=== PATIENT | female | born 1945 | race Caucasian/White ===

== ENCOUNTER 2018-07-31 21:26 | Emergency (ER) | payer OTHER ==
[~2018-07-31] VITALS: Ht 162.5 cm; Wt 73.5 kg
[~2018-07-31 21:26] MED LIST: FISH OIL; HYDROCODONE BIT1 T11 PO; IBU-8800 MG PO; LAMISIL250 MG PO; MULTIPLE VITAMI1 CAP PO; MULTIVITAMIN FO1 CAP PO; OMEGA 31000 MG PO; PRILOSEC20 MG PO; VITAMIN B1225 MCG PO; VITAMIN C100 MG PO
[2018-07-31 21:30] VITALS: BP 177/77
[2018-07-31] MEDS ORDERED: VIBRAMYCIN100 MG PO (23:14)
== END 2018-07-31 23:35 | disposition home or self-care (01) ==
LOC: ED 21:26
DX: R05 Cough (principal); R09.89 Other specified symptoms and signs involving the circulatory and respiratory systems; R68.83 Chills (without fever); Z79.899 Other long term (current) drug therapy; Z90.710 Acquired absence of both cervix and uterus

== ENCOUNTER 2018-08-01 19:28 | Inpatient (IN) | payer OTHER ==
[~2018-08-01] VITALS: Ht 162.5 cm; Wt 74.0 kg
--- NOTE | ~2018-08-01 | EKG ---
[place], [place] ELECTROCARDIOGRAM REPORT NAME: CB GARZA UNIT #: [id number] ROOM: 415 DOCTOR: EPIPHANY DRAFT REPORT BIRTHDATE: [birth year] [facility] Test Date: 2018-08-01 Test Time: 20:17:11 Pat Name: CB GARZA Department: ER Room: 415 Gender: F Recreation Superintendent: EKG.MA : 1945 Requested By: TREY XIONG Order Number: [id number] Reading MD: Harmony Stoner MD Measurements Intervals [place] Rate: 80 P: 42 [place]: 164 QRS: 48 QRSD: 84 T: 29 QT: 352 QTc: 406 Interpretive Statements Sinus rhythm Low voltage, precordial leads Electronically Signed On 08-02-2018 17:38:49 PDT by Harmony Stoner MD CM:EKGRPT:ELECTROCARDIOGRAM REPORT [id number] TREY XIONG MD EPIPHANY DRAFT REPORT TREY XIONG MD
[2018-08-01 19:28] VITALS: BP 180/72
[~2018-08-01 19:28] MED LIST changes: +VIBRAMYCIN100 MG PO
[2018-08-01 20:04] LABS: BASO % 0.5 % (0.0-1.0); HEMATOCRIT 42.9 % (37.0-47.0); HEMOGLOBIN 14.4 g/dl (12.0-16.0); LYMPH # 0.7 10*3/uL (1.3-4.4); LYMPH % 9.3 % (27.0-41.0); MEAN CELL VOLUME 86.7 fl (81.0-99.0); MEAN CORPUSCULAR HGB 29.1 pg (27.0-31.0); MEAN CORPUSCULAR HGB CONC 33.6 g/dl (33.0-37.0); MEAN PLATELET VOLUME 9.5 fl (9.6-12.3); MONO # 0.3 10*3/uL (0.1-1.0); MONO % 3.4 % (3.0-9.0); NEUT # 6.6 10*3/uL (2.3-7.9); NEUT % 86.1 % (47.0-73.0); PLATELET COUNT AUTOMATED 328 10*3/uL (130-400); RED BLOOD COUNT 4.95 10*6/uL (4.10-5.10); RED CELL DISTRI WIDTH 12.9 % (0-14.5); WHITE BLOOD COUNT 7.7 10*3/uL (4.8-10.8)
[2018-08-01 20:26] LABS: ALBUMIN 3.7 gm/dl (3.1-4.5); ALKALINE PHOSPHATASE 103 U/L (45-117); BUN 14 mg/dl (7-24); CHLORIDE 103 mmol/L (98-107); CREATININE 0.98 mg/dL (0.55-1.02); LIPASE 181 U/L (73-393); POTASSIUM 3.8 mmol/L (3.5-5.1); SGOT/AST 21 IU/L (3-35); SGPT/ALT 39 U/L (12-78); SODIUM 140 mmol/L (136-145); TOTAL PROTEIN 7.5 gm/dL (6.4-8.2)
[2018-08-01 20:28] LABS: TROPONIN I < 0.015 ng/ml (<0.045)
[2018-08-01 22:19] VITALS: BP 144/62
[2018-08-02 00:05] VITALS: BP 158/72
[2018-08-02] MEDS ORDERED: OSTEO BI-FLEX1 EACH PO (00:19)
[2018-08-02 05:42] LABS: BUN 11 mg/dl (7-24); CHLORIDE 107 mmol/L (98-107); CHOLESTEROL 201 mg/dL (<200); CREATININE 0.73 mg/dL (0.55-1.02); HDL CHOLESTEROL 36 mg/dl (40-60); LDL CHOLESTEROL 136 mg/dL (9-159); PHOSPHOROUS 2.8 mg/dL (2.5-4.9); POTASSIUM 3.2 mmol/L (3.5-5.1); SODIUM 143 mmol/L (136-145); TRIGLYCERIDES 147 mg/dl (<150); VLDL CHOLESTEROL 29 mg/dL (6-40)
[2018-08-02 05:48] LABS: BASO # 0.1 10*3/uL (0.0-0.1); BASO % 0.7 % (0.0-1.0); EOS # 0.1 10*3/uL (0.0-0.4); EOS % 0.9 % (1.0-4.0); HEMATOCRIT 39.6 % (37.0-47.0); HEMOGLOBIN 12.8 g/dl (12.0-16.0); LYMPH # 1.9 10*3/uL (1.3-4.4); LYMPH % 25.4 % (27.0-41.0); MEAN CORPUSCULAR HGB 28.1 pg (27.0-31.0); MEAN CORPUSCULAR HGB CONC 32.3 g/dl (33.0-37.0); MEAN PLATELET VOLUME 9.7 fl (9.6-12.3); MONO # 0.6 10*3/uL (0.1-1.0); MONO % 8.2 % (3.0-9.0); NEUT # 4.9 10*3/uL (2.3-7.9); NEUT % 64.3 % (47.0-73.0); PLATELET COUNT AUTOMATED 286 10*3/uL (130-400); RED BLOOD COUNT 4.55 10*6/uL (4.10-5.10); RED CELL DISTRI WIDTH 12.9 % (0-14.5); WHITE BLOOD COUNT 7.6 10*3/uL (4.8-10.8)
[2018-08-02 08:00] VITALS: BP 152/76
[2018-08-02 12:00] VITALS: BP 166/65
[2018-08-02 16:00] VITALS: BP 155/68
[2018-08-02 20:00] VITALS: BP 186/81
[2018-08-02 22:44] VITALS: BP 170/90
[2018-08-03] VITALS: BP 159/77
[2018-08-03 08:00] VITALS: BP 169/64
[2018-08-03] MEDS ORDERED: PREDNISONE10 MG PO (10:28)
== END 2018-08-03 11:18 | disposition home or self-care (01) | DRG 202 ==
LOC: ED 19:28 → EDHOLD 23:22 → 4E 23:46
PROVIDERS: Emergency Medicine Emergency Medical Services; Student in an Organized Health Care Education/Training Program; ADMIT Internal Medicine
DX: J20.9 Acute bronchitis, unspecified (principal); J18.9 Pneumonia, unspecified organism; E87.2 Acidosis; N18.3 Chronic kidney disease, stage 3 (moderate); E78.5 Hyperlipidemia, unspecified; E66.3 Overweight; R00.1 Bradycardia, unspecified; E83.41 Hypermagnesemia; I16.0 Hypertensive urgency; Z90.49 Acquired absence of other specified parts of digestive tract; Z90.710 Acquired absence of both cervix and uterus; Z72.89 Other problems related to lifestyle; Z83.3 Family history of diabetes mellitus; Z82.49 Family history of ischemic heart disease and other diseases of the circulatory system; Z82.3 Family history of stroke; Z80.3 Family history of malignant neoplasm of breast; Z68.27 Body mass index [BMI] 27.0-27.9, adult

== ENCOUNTER → 2018-09-23 | Outpatient (CLI) | payer OTHER ==
[~2018-09-23] MED LIST changes: +OSTEO BI-FLEX1 EACH PO; +PREDNISONE10 MG PO
== END | disposition home or self-care (01) ==
LOC: MAMMO 13:23
DX: Z12.31 Encounter for screening mammogram for malignant neoplasm of breast (principal)

== ENCOUNTER 2020-04-03 13:51 | Emergency (ER) | payer OTHER ==
[~2020-04-03] VITALS: Ht 162.5 cm; Wt 76.7 kg
[2020-04-03 14:32] VITALS: BP 152/72
[2020-04-03] MEDS ORDERED: NORCO 5-325 TA1 EACH PO (15:27)
== END 2020-04-03 16:56 | disposition home or self-care (01) ==
LOC: ED 13:51
DX: S82.831A Other fracture of upper and lower end of right fibula, initial encounter for closed fracture (principal); Z79.899 Other long term (current) drug therapy; Z90.49 Acquired absence of other specified parts of digestive tract; Z90.710 Acquired absence of both cervix and uterus; Z90.89 Acquired absence of other organs; X50.1XXA Overexertion from prolonged static or awkward postures, initial encounter; Y93.01 Activity, walking, marching and hiking; Y92.89 Other specified places as the place of occurrence of the external cause; Y99.8 Other external cause status

== ENCOUNTER → 2021-11-26 | Outpatient (CLI) | payer OTHER ==
[~2021-11-26] MED LIST changes: +NORCO 5-325 TA1 EACH PO
[2021-11-26 10:21] LABS: BASO # 0.1 10*3/uL (0.0-0.1); BASO % 1.2 % (0.0-1.0); EOS # 0.1 10*3/uL (0.0-0.4); EOS % 1.7 % (1.0-4.0); HEMATOCRIT 46.1 % (37.0-47.0); LYMPH # 1.8 10*3/uL (1.3-4.4); LYMPH % 29.5 % (27.0-41.0); MEAN CELL VOLUME 85.2 fl (81.0-99.0); MEAN CORPUSCULAR HGB 27.9 pg (27.0-31.0); MEAN CORPUSCULAR HGB CONC 32.8 g/dl (33.0-37.0); MEAN PLATELET VOLUME 9.1 fl (9.6-12.3); MONO # 0.4 10*3/uL (0.1-1.0); MONO % 6.3 % (3.0-9.0); NEUT # 3.7 10*3/uL (2.3-7.9); NEUT % 60.8 % (47.0-73.0); PLATELET COUNT AUTOMATED 336 10*3/uL (130-400); RED BLOOD COUNT 5.41 10*6/uL (4.10-5.10); RED CELL DISTRI WIDTH 12.3 % (0-14.5)
[2021-11-26 10:49] LABS: ALKALINE PHOSPHATASE 78 U/L (45-117); BUN 17 mg/dl (7-24); CHLORIDE 106 mmol/L (98-107); CHOLESTEROL 252 mg/dL (<200); CREATININE 0.82 mg/dL (0.55-1.02); LDL CHOLESTEROL 165 mg/dL (9-159); POTASSIUM 3.9 mmol/L (3.5-5.1); SGOT/AST 27 IU/L (3-35); SGPT/ALT 34 U/L (12-78); SODIUM 141 mmol/L (136-145); TOTAL PROTEIN 7.4 gm/dL (6.4-8.2); TRIGLYCERIDES 226 mg/dl (<150)
== END | disposition home or self-care (01) ==
LOC: LAB 09:51
PROVIDERS: ATTEND Family Medicine
DX: M47.817 Spondylosis without myelopathy or radiculopathy, lumbosacral region (principal); M25.551 Pain in right hip; M25.552 Pain in left hip; M25.78 Osteophyte, vertebrae; E78.49 Other hyperlipidemia

== ENCOUNTER → 2023-03-28 | Outpatient (CLI) | payer OTHER ==
[2023-03-28 09:23] LABS: HEMATOCRIT 48.3 % (37.0-47.0); MEAN CELL VOLUME 86.1 fl (81.0-99.0); MEAN CORPUSCULAR HGB 28.3 pg (27.0-31.0); MEAN CORPUSCULAR HGB CONC 32.9 g/dl (33.0-37.0); RED BLOOD COUNT 5.61 10*6/uL (4.10-5.10); RED CELL DISTRI WIDTH 12.2 % (0-14.5); WHITE BLOOD COUNT 6.2 10*3/uL (4.8-10.8)
[2023-03-28 09:59] LABS: ALKALINE PHOSPHATASE 80 U/L (46-116); BUN 12 mg/dl (9-23); CHLORIDE 104 mmol/L (98-107); CHOLESTEROL 273 mg/dL (<200); LDL CHOLESTEROL 167 mg/dL (9-159); POTASSIUM 3.9 mmol/L (3.4-5.1); SGPT/ALT 20 U/L (5-49); TOTAL PROTEIN 7.2 gm/dL (6.0-8.0); TRIGLYCERIDES 310 mg/dl (<150)
== END | disposition home or self-care (01) ==
LOC: LAB 08:44
PROVIDERS: ATTEND Family Medicine
DX: E78.49 Other hyperlipidemia (principal); M85.80 Other specified disorders of bone density and structure, unspecified site; Z00.00 Encounter for general adult medical examination without abnormal findings

== ENCOUNTER → 2023-07-07 | Outpatient (CLI) | payer OTHER | END | disposition home or self-care (01) | LOC: RAD 01:42 | PROVIDERS: ATTEND Family Medicine | DX: Z78.0 Asymptomatic menopausal state (principal) ==

== ENCOUNTER → 2024-06-01 | Outpatient (CLI) | payer OTHER ==
[2024-06-01 08:33] LABS: HEMATOCRIT 42.8 % (37.0-47.0); MEAN CELL VOLUME 86.6 fl (81.0-99.0); MEAN CORPUSCULAR HGB 28.9 pg (27.0-31.0); MEAN CORPUSCULAR HGB CONC 33.4 g/dl (33.0-37.0); MEAN PLATELET VOLUME 8.8 fl (9.6-12.3); RED BLOOD COUNT 4.94 10*6/uL (4.10-5.10); RED CELL DISTRI WIDTH 12.5 % (0-14.5); WHITE BLOOD COUNT 6.7 10*3/uL (4.8-10.8)
[2024-06-01 09:26] LABS: ALKALINE PHOSPHATASE 59 U/L (46-116); BUN 14 mg/dl (9-23); CHLORIDE 103 mmol/L (98-107); CHOLESTEROL 243 mg/dL (<200); LDL CHOLESTEROL 137 mg/dL (9-159); SGPT/ALT 28 U/L (5-49); TOTAL PROTEIN 6.9 gm/dL (6.0-8.0); TRIGLYCERIDES 305 mg/dl (<150)
== END | disposition home or self-care (01) ==
LOC: LAB 08:14
PROVIDERS: ATTEND Family Medicine
DX: I10 Essential (primary) hypertension (principal); M85.80 Other specified disorders of bone density and structure, unspecified site; L65.9 Nonscarring hair loss, unspecified